=== PATIENT | female | born 1960 | race Native Hawaiian/Other Pacific Islander ===

== ENCOUNTER 2017-05-27 08:22 | Emergency (ER) | payer OTHER ==
[2017-05-27 08:43] VITALS: O2SAT 100
--- NOTE | 2017-05-27 09:47 | C.PDOC ---
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 Patient denies fever, chills, change in sensation or any other complaints at this time. At ED patient's blood pressure is high secondary to not taking blood pressure medications today. Tetanus vaccine not UTD Time Seen by Provider: 05/27/17 08:57 Chief Complaint (Nursing): Abnormal Skin Integrity History Per: Patient History/Exam Limitations: no limitations Onset/Duration Of Symptoms: Mins Current Symptoms Are (Timing): Still Present Location Of Injury: Right: Hand Quality Of Symptoms: Painful Past Medical History Reviewed: Historical Data, Nursing Documentation, Vital Signs Vital Signs: Last Vital Signs Temp 98.0 F 05/27/17 10:05 Pulse 85 05/27/17 10:05 Resp 18 05/27/17 10:05 BP 188/91 H 05/27/17 10:05 Pulse Ox 100 05/27/17 10:05 - Medical History PMH: HTN Surgical History: No Surg Hx Family History: States: No Known Family Hx - Social History Hx Alcohol Use: No Hx Substance Use: No - Immunization History Hx Tetanus Toxoid Vaccination: No Hx Influenza Vaccination: No Hx Pneumococcal Vaccination: No Review Of Systems Constitutional: Negative for: Fever, Chills Cardiovascular: Negative for: Chest Pain Respiratory: Negative for: Shortness of Breath Gastrointestinal: Negative for: Nausea, Vomiting Musculoskeletal: Positive for: Hand Pain Skin: Negative for: Rash Neurological: Negative for: Weakness, Numbness Physical Exam - Physical Exam Appears: Non-toxic, No Acute Distress Skin: Warm, Dry, No Rash, Other (1.5cm superficial laceration to tip of right index finger) Head: Atraumatic, Normacephalic Eye(s): bilateral: Normal Inspection Oral Mucosa: Moist Neck: Supple Chest: Symmetrical Extremity: Normal ROM, No Tenderness, Capillary Refill (<2 seconds), No Deformity Extremity: Bilateral: Normal ROM Pulses: Left Radial: Normal, Right Radial: Normal Neurological/Psych: Oriented x3, Normal Motor, Normal Sensation ED Course And Treatment O2 Sat by Pulse Oximetry: 100 (RA) Pulse Ox Interpretation: Normal Laceration - Laceration Repair No standard instances Wound Length (In cm): 1.5 cm Description Of Wound: Linear Anesthesia: Lidocaine 2% Wound Examination: Irrigated With Saline Wound Closure: Suture (3) Suture Technique And Material Used: Interrupted Wound Complexity: Simple Medical Decision Making Medical Decision Making: Plan: LAC repair, Tetanus Vaccine administered Patient has history of HTN but did not take her meds today denies any headache, dizziness or Chest pain Will take B/P meds after discharge Disposition Counseled Patient/Family Regarding: Diagnosis, Need For Followup - Disposition Disposition: HOME/ ROUTINE Disposition Time: 10:00 Condition: STABLE Additional Instructions: Suture removal in 7 days Instructions: Finger Laceration (ED) Forms: [employer] (Swiss) - POA Present On Arrival: None - Clinical Impression Clinical Impression: Laceration of skin, Finger laceration - PA / ADJUNCT PHYSICS INSTRUCTOR / Resident Statement MD/DO has reviewed & agrees with the documentation as recorded. - Scribe Statement The provider has reviewed the documentation as recorded by the Laverneibmana Haddad All medical record entries made by the Laverneibmana were at my direction and personally dictated by me. I have reviewed the chart and agree that the record accurately reflects my personal performance of the history, physical exam, medical decision making, and the department course for this patient. I have also personally directed, reviewed, and agree with the discharge instructions and disposition.
[2017-05-27 10:08] VITALS: BP 188/91; PULSE 85; RESP 18; TEMP 98
== END 2017-05-27 10:15 | disposition home or self-care (01) ==
LOC: C.ER 08:22
DX: S61.210A Laceration without foreign body of right index finger without damage to nail, initial encounter (principal); W25.XXXA Contact with sharp glass, initial encounter; Y92.238 Other place in hospital as the place of occurrence of the external cause; Y99.0 Civilian activity done for income or pay